=== PATIENT | female | born 1990 ===

== ENCOUNTER 2018-08-06 13:59 | Emergency (ER) | payer OTHER ==
[2018-08-06 14:38] VITALS: PULSE 67; RESP 18; TEMP 98.2; O2SAT 99
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
[2018-08-06 19:14] VITALS: BP 110/60
== END 2018-08-06 17:50 | disposition home or self-care (01) ==
LOC: H.ER 13:59
DX: S16.1XXA Strain of muscle, fascia and tendon at neck level, initial encounter (principal); V43.52XA Car driver injured in collision with other type car in traffic accident, initial encounter; Y92.410 Unspecified street and highway as the place of occurrence of the external cause